=== PATIENT | female | born 1965 | race Caucasian/White ===

== ENCOUNTER 2022-09-20 22:51 | Emergency (ER) | payer OTHER ==
[~2022-09-20] VITALS: Ht 175.3 cm; Wt 92.0 kg
[2022-09-20] MEDS ORDERED: LISINOPRIL20 MG PO (23:12)
[2022-09-21] MEDS ORDERED: HYDROCODON-ACE1 EA10 PO (00:35)
[2022-09-21 01:22] VITALS: BP 142/80
== END 2022-09-21 01:25 | disposition home or self-care (01) ==
LOC: ED 22:51
DX: S52.591A Other fractures of lower end of right radius, initial encounter for closed fracture (principal); S52.611A Displaced fracture of right ulna styloid process, initial encounter for closed fracture; V58.4XXA Person boarding or alighting a pick-up truck or van injured in noncollision transport accident, initial encounter; Z79.899 Other long term (current) drug therapy
CPT/HCPCS: 29125; 73110; 99283-25; A9270